=== PATIENT | male | born 1995 | race Caucasian/White ===

== ENCOUNTER 2017-02-10 20:50 | Emergency (ER) | payer BC ==
[2017-02-10 21:11] VITALS: O2SAT 98
[2017-02-10] MEDS ORDERED: MOTRIN 600 MG PO ONE (21:17)
[2017-02-10] MEDS ORDERED: MOTRIN 600 MG ONE (21:20)
--- NOTE | 2017-02-10 21:21 | ERPHSYRPT ---
- History of Present Illness Time Seen by Provider: 02/10/17 21:12 Source: patient Exam Limitations: no limitations Patient Subjective Stated Complaint: PT STATES HE WAS AT WORK THIS EVENING WHEN HIS RIGHT SHOULDER/CLAVICLE AREA STARTED TO HURT. PT DENIES ANY INJURY AT THE WORKPLACE. PT STATES THAT WHEN HE INHALES HE HAS WORSE PAIN. PT ALSO REPORTS TENDERNESS WHEN HE MOVES HIS RIGHT ARM. Triage Nursing Assessment: PT IS AOX3, AMBULATORY TO COT WITH NO DIFFICULTIES, RESPS ARE EASY AND NON LABORED, SKIN IS PWD. PULSES ARE STRONG AND EQUAL. 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 He denies any injury he does state he has had a cough is not short of breath. Past medical history migraines, high blood pressure, bronchitis. Past surgical history includes orthopedic surgery with the surgery on his right first digit, Social history patient denies tobacco alcohol or illicit drug use, Timing/Duration: today Severity: moderate Modifying Factors: Improves With: nothing Associated Symptoms: cough, chest pain (pain right anterior upper chest with deep breathing and movement), No nausea, No vomiting, No abdominal pain, No shortness of breath, No heartburn, No diaphoresis, No chills Allergies/Adverse Reactions: naproxen Allergy (Severe, Verified 02/10/17 21:17) Shortness of Breath Hx Tetanus, Diphtheria Vaccination/Date Given: Yes Hx Influenza Vaccination/Date Given: No Hx Pneumococcal Vaccination/Date Given: No Immunizations Up to Date: Yes - Review of Systems Constitutional: No Fever, No Chills Eyes: No Symptoms Ears, Nose, & Throat: No Symptoms Respiratory: Cough, Other (pain right clavicular area with deep breathing and movement) Cardiac: Chest Pain (Pain right clavicular area with deep breathing and movement ) Abdominal/Gastrointestinal: No Abdominal Pain, No Nausea, No Vomiting, No Diarrhea Genitourinary Symptoms: No Dysuria Musculoskeletal: No Back Pain, No Neck Pain Skin: No Rash Neurological: No Dizziness, No Focal Weakness, No Sensory Changes Psychological: No Symptoms Endocrine: No Symptoms All Other Systems: Reviewed and Negative - Past Medical History Pertinent Past Medical History: No Neurological History: Migraines Cardiac History: No Pertinent History, Hypertension Respiratory History: Bronchitis Endocrine Medical History: No Pertinent History Musculoskeletal History: No Pertinent History GI Medical History: No Pertinent History History: No Pertinent History Psycho-Social History: No Pertinent History Male Reproductive Disorders: No Pertinent History - Past Surgical History Past Surgical History: Yes Neuro Surgical History: No Pertinent History Cardiac: No Pertinent History Respiratory: No Pertinent History Gastrointestinal: No Pertinent History Genitourinary: No Pertinent History Musculoskeletal: Orthopedic Surgery Other Surgical History: REPAIR TO LEFT MIDDLE DIGIT - Social History Smoking Status: Never smoker Exposure to second hand smoke: No Drug Use: none Patient Lives Alone: No - Nursing Vital Signs Nursing Vital Signs: Initial Vital Signs Temperature 98.1 F Temperature Source Oral Pulse Rate 84 Respiratory Rate 18 Blood Pressure [Left Arm] 156/98 Pain Intensity 4 - Physical Exam General Appearance: no apparent distress, alert Eye Exam: PERRL/EOMI, eyes nml inspection Ears, Nose, Throat Exam: normal ENT inspection, TMs normal, pharynx normal, moist mucous membranes Neck Exam: normal inspection, non-tender, supple, full range of motion Respiratory Exam: normal breath sounds, chest tenderness (slight tenderness right clavicular area with palpation, movement of right arm and deep breathing) , lungs clear, No respiratory distress, No diminished breath sounds Cardiovascular Exam: regular rate/rhythm, normal heart sounds, normal peripheral pulses Gastrointestinal/Abdomen Exam: soft, normal bowel sounds, No tenderness, No mass Back Exam: normal inspection Extremity Exam: normal inspection, normal range of motion, pelvis stable Neurologic Exam: alert, oriented x 3, cooperative, normal mood/affect, nml cerebellar function, nml station & gait, sensation nml, No motor deficits Skin Exam: normal color, warm, dry, No rash SpO2 Interpretation: normal (98%) SpO2: 98 Oxygen Delivery: Room Air - Course Nursing assessment & vital signs reviewed: Yes EKG Interpreted by Me: RATE (78 bpm), Sinus Rhythm, Other (EKG sinus rhythm, 78 bpm, axisSI/QIII pattern, isolated Q wave in lead 3, no acute ST or T wave changes noted) Ordered Tests: Active Orders 24 hr Category Date Time Status EKG-ER Only STAT Care 02/10/17 21:25 Active CHEST 2 VIEWS (PA AND LAT) Stat Exams 02/10/17 21:16 Taken Medication Summary Discontinued Medications Generic Name Dose Route Start Last Admin Trade Name Freq PRN Reason Stop Dose Admin Ibuprofen 600 mg 02/10/17 21:17 02/10/17 21:22 Motrin 600 Mg PO 02/10/17 21:18 600 mg STAT ONE Administration Ibuprofen Confirm 02/10/17 21:20 Motrin 600 Mg Administered 02/10/17 21:21 Dose 600 mg .ROUTE .[facility]-MED ONE - Progress Progress: improved Progress Note: 02/10/17 22:20 X-ray of the patient's chest unremarkable no pneumothorax no fractures no pneumonias. EKG normal sinus rhythm Q-wave in lead 3 otherwise unremarkable. Will discharge patient limited use of the right arm for 48 hours. Patient to follow-up with his family doctor. - Departure Time of Disposition: 22:21 Departure Disposition: Home Clinical Impression: Musculoskeletal chest pain Condition: Fair Critical Care Time: No Referrals: JANELL CASTILLO [Primary Care Provider] - Additional Instructions: Return home. Cold packs to area 24-48 hours. Tylenol every 4 hours or Motrin every 6 hours as needed for pain. Limited use of the right arm for 48 hours. Follow-up with your family doctor if symptoms worse no better in 48 hours or persist longer than 72 hours. Return for acute distress or for severe symptoms.
[2017-02-10 22:56] VITALS: BP 156/98; PULSE 84
--- NOTE | 2017-02-11 23:48 | XRAY ---
Exam: Two-view chest from 02/10/2017. Comparison: Two-view chest from 08/29/2015. Indication: Right upper chest pain with movement and deep inspiration. Findings: Upright PA and lateral chest films were obtained for evaluation. The heart size and contour are normal. The patient is rotated slightly toward the left on the PA film. The eduardo and mediastinal structures appear unremarkable. The lungs are adequately inflated. No air space infiltrates, vascular congestion, pneumothorax, or pleural fluid is seen. The visualized bones appear unremarkable. Impression: 1. No acute cardiopulmonary disease is seen. This is unchanged from 08/29/2015.
== END 2017-02-10 22:30 | disposition home or self-care (01) ==
LOC: ED 20:50
DX: R07.89 Other chest pain (principal)
CPT/HCPCS: 71020; 93005; 99282; A9270-GY

== ENCOUNTER 2018-12-15 00:31 | Observation (INO) | payer BC ==
[2018-12-15] MEDS ORDERED: Sodium Chloride 0.9% 1000 ML 1,000 ML IV STA (01:38)
[2018-12-15] MEDS ORDERED: Sodium Chloride 0.9% 1000 ML 1,000 ML ONE (02:08)
[2018-12-15 02:09] LABS: BASOPHIL % 0.2 % (0.0-0.4); Basophil (Absolute #) 0.04 (0-0.4); Eosinophil % 0.3 % (0.00-5.0); Eosinophil (Absolute #) 0.08 (0-0.5); Granulocytes % 81.3 % (36.0-66.0); Hematocrit 44.5 % (42-50); Hemoglobin 14.8 gm/dl (12.5-18.0); Lymphocyte (Absolute #) 3.19 (1.0-4.6); Lymphocytes % 13.9 % (24.0-44.0); Mean Cell Volume 94.3 fl (78-100); Mean Corpuscular Hemoglobin 31.4 pg (26-32); Mean Corpuscular Hgb Concent. 33.3 g/dl (32-36); Mean Platelet Volume 10.5 fl (6-9.5); Monocyte (Absolute #) 0.99 (0.0-1.3); Monocytes % 4.3 % (0.0-12.0); Platelet Count 376 K/mm3 (150-450); Red Blood Count 4.72 M/mm3 (4.1-5.6); Red Cell Distribution Width 13.5 % (11.5-14.0)
[2018-12-15 02:21] LABS: ALBUMIN 4.5 g/dL (3.5-5.0); ALKALINE PHOSPHATASE 102 U/L (38-126); ANION GAP 14.9 MEQ/L (5-15); BLOOD UREA NITROGEN 11 mg/dL (9-20); CHLORIDE 102 mmol/L (98-107); Calcium 9.6 mg/dL (8.4-10.2); Carbon Dioxide 26 mmol/L (22-30); Creatinine 1 1.01 mg/dL (0.66-1.25); Glucose 143 mg/dL (74-106); Potassium 4.1 mmol/L (3.5-5.1); SGOT/AST 37 U/L (17-59); SGPT/ALT 77 U/L (0-50); SODIUM 139 mmol/L (137-145); Total Protein 7.9 g/dL (6.3-8.2)
--- NOTE | 2018-12-15 02:44 | ERPHSYRPT ---
- History of Present Illness Historian: patient Exam Limitations: no limitations Patient Subjective Stated Complaint: pt states he fell out of a truck and landed on a rock. c/o pain in his rt side with pain on his lt side only when he lays on the rt side. Triage Nursing Assessment: pt alert and oriented, answers questions approp. pt ambulatory with low gait noted. respirations nonlabored with lungs cta. pt splinting rt side with arm. no bruising, abrasion noted. pt reports tenderness to light palpation. Physician History: Pt is a 23 y/o male that presented to the ER, after falling off a truck. The pt states, he was trying to get off the truck, his knee buckled under him, and he fell on the R side of the abdomen. Pt states, the pain is severe and is tender on the RUQ and RLQ and the R lower back. Pt denies F/C. He does have sweats. No N/V. No SOB or cough. No problem with urination, or hematuria. Timing/Duration: today Activities at Onset: activity Quality: sharpness, stabbing, throbbing Abdominal Pain Onset Location: RUQ, RLQ Pain Radiation: flank, back (on R) Severity of Pain-Max: moderate Severity of Pain-Current: moderate Modifying Factors: Improves With: analgesics Associated Symptoms: diaphoresis Previous symptoms: no prior history Allergies/Adverse Reactions: No Known Drug Allergies Allergy (Verified 12/15/18 00:54) Home Medications: Diclofenac Sodium 75 mg PO BID 12/15/18 [History] Hx Tetanus, Diphtheria Vaccination/Date Given: Yes Hx Influenza Vaccination/Date Given: Yes Hx Pneumococcal Vaccination/Date Given: No Immunizations Up to Date: Yes - Review of Systems Constitutional: Other (diaphoresis) Eyes: No Symptoms Ears, Nose, & Throat: No Symptoms Respiratory: No Cough, No Dyspnea Cardiac: No Chest Pain, No Edema, No Syncope Abdominal/Gastrointestinal: Abdominal Pain Genitourinary Symptoms: No Dysuria Musculoskeletal: No Back Pain, No Neck Pain Neurological: No Dizziness, No Focal Weakness, No Sensory Changes - Past Medical History Pertinent Past Medical History: Yes Neurological History: Migraines Cardiac History: No Pertinent History, Hypertension Respiratory History: Bronchitis Endocrine Medical History: No Pertinent History Musculoskeletal History: No Pertinent History GI Medical History: No Pertinent History History: No Pertinent History Psycho-Social History: No Pertinent History Male Reproductive Disorders: No Pertinent History Other Medical History: bulging discs and bad knee - Past Surgical History Past Surgical History: Yes Neuro Surgical History: No Pertinent History Cardiac: No Pertinent History Respiratory: No Pertinent History Gastrointestinal: No Pertinent History Genitourinary: No Pertinent History Musculoskeletal: Orthopedic Surgery Other Surgical History: REPAIR TO LEFT MIDDLE DIGIT - Social History Smoking Status: Never smoker Exposure to second hand smoke: No Drug Use: none Patient Lives Alone: No - Nursing Vital Signs Nursing Vital Signs: Initial Vital Signs Temperature 98.2 F 12/15/18 00:39 Pulse Rate 82 12/15/18 00:39 Respiratory Rate 18 12/15/18 00:39 Blood Pressure 159/87 12/15/18 00:39 O2 Sat by Pulse Oximetry 96 12/15/18 00:39 Pain Scale Pain Intensity 10 - Physical Exam General Appearance: moderate distress Eye Exam: PERRL/EOMI, eyes nml inspection Ears, Nose, Throat Exam: normal ENT inspection, pharynx normal, moist mucous membranes Neck Exam: normal inspection, non-tender, supple, full range of motion Respiratory Exam: normal breath sounds, lungs clear, No respiratory distress Cardiovascular Exam: regular rate/rhythm, normal heart sounds Gastrointestinal/Abdomen Exam: soft, tenderness (RUQ and RLQ. Radiating to R back), guarding Back Exam: normal inspection, normal range of motion, CVA tenderness, No vertebral tenderness Extremity Exam: normal inspection, normal range of motion, pelvis stable Neurologic Exam: alert, oriented x 3, cooperative, normal mood/affect, nml cerebellar function, sensation nml, No motor deficits SpO2: 96 - Course Nursing assessment & vital signs reviewed: Yes - CT Exams Abdomen/Pelvis CT Interpretation: Discussed w/radiologist (Acute appedicitis) Ordered Tests: Active Orders 24 hr Category Date Time Status ABDOMEN AND PELVIS W/0 CONTRAS [CT] Stat Exams 12/15/18 00:54 Taken CBC W DIFF Stat Lab 12/15/18 02:09 Completed CMP Stat Lab 12/15/18 02:09 Completed Medication Summary Discontinued Medications Generic Name Dose Route Start Last Admin Trade Name Freq PRN Reason Stop Dose Admin Sodium Chloride 1,000 mls @ 999 mls/hr 12/15/18 01:38 12/15/18 02:10 Sodium Chloride 0.9% 1000 Ml IV 12/15/18 02:38 999 mls/hr .Q1H1M STA Administration Sodium Chloride Confirm 12/15/18 02:08 Sodium Chloride 0.9% 1000 Ml Administered 12/15/18 02:09 Dose 1,000 mls [facility] Lab/Rad Data: Laboratory Result Diagrams 12/15/18 02:09 12/15/18 02:09 Laboratory Results 12/15/18 12/15/18 Range/Units 02:09 02:09 WBC 23.0 H (4.0-10.5) K/mm3 RBC 4.72 (4.1-5.6) M/mm3 Hgb 14.8 (12.5-18.0) gm/dl Hct 44.5 (42-50) % MCV 94.3 (78-100) fl MCH 31.4 (26-32) pg MCHC 33.3 (32-36) g/dl RDW 13.5 (11.5-14.0) % Plt Count 376 (150-450) K/mm3 MPV 10.5 H (6-9.5) fl Gran % 81.3 H (36.0-66.0) % Eos # (Auto) 0.08 (0-0.5) Absolute Lymphs (auto) 3.19 (1.0-4.6) Absolute Monos (auto) 0.99 (0.0-1.3) Lymphocytes % 13.9 L (24.0-44.0) % Monocytes % 4.3 (0.0-12.0) % Eosinophils % 0.3 (0.00-5.0) % Basophils % 0.2 (0.0-0.4) % Absolute Granulocytes 18.70 H (1.4-6.9) Basophils # 0.04 (0-0.4) Sodium 139 (137-145) mmol/L Potassium 4.1 (3.5-5.1) mmol/L Chloride 102 (98-107) mmol/L Carbon Dioxide 26 (22-30) mmol/L Anion Gap 14.9 (5-15) MEQ/L BUN 11 (9-20) mg/dL Creatinine 1.01 (0.66-1.25) mg/dL Estimated GFR > 60.0 ML/MIN Glucose 143 H (74-106) mg/dL Calcium 9.6 (8.4-10.2) mg/dL Total Bilirubin 0.50 (0.2-1.3) mg/dL AST 37 (17-59) U/L ALT 77 H (0-50) U/L Alkaline Phosphatase 102 (38-126) U/L Serum Total Protein 7.9 (6.3-8.2) g/dL Albumin 4.5 (3.5-5.0) g/dL - Progress Progress: unchanged Progress Note: 12/15/18 02:44 Pt was evaluated and a CT of the abd/pelvis showed acute appendicitis. Elevated WBCs. Dr Joyner was contacted, and pt will be admitted to the hospital, under him, and kept NPO. Surgery for early this AM. IVF were initiated with 1 lit NSS bolus. Discussed with .: Yasmeen Will see patient in: hospital (full admit) - Departure Departure Disposition: In-patient Admission Clinical Impression: Acute appendicitis Condition: Stable Critical Care Time: No Referrals: DOCTOR,NO FAMILY [Primary Care Provider] - Additional Instructions: Pt to be admitted under Dr Arana for acute appendicitis.
[2018-12-15] MEDS ORDERED: Zofran 4 MG/2 ML VIAL IV PRN (02:47)
[2018-12-15] MEDS ORDERED: MORPHINE SULFATE 2 MG INJ IV PRN (02:47)
[2018-12-15] MEDS ORDERED: Sodium Chloride 0.9% 1000 ML 1,000 ML IV SCH (03:00)
[2018-12-15] MEDS ORDERED: Sensorcaine 0.25% 10 ML ONE (05:46)
[2018-12-15] MEDS ORDERED: Lactated Ringers 1,000 ML IV ONE (05:46)
[2018-12-15] MEDS ORDERED: WATER IV ONE (05:55)
[2018-12-15] MEDS ORDERED: DEXTROSE IV ONE (05:55)
[2018-12-15] MEDS ORDERED: MEFOXIN IV ONE (05:55)
[2018-12-15] MEDS ORDERED: DEMEROL 50 MG ONE (06:49)
[2018-12-15] MEDS ORDERED: TORAdol 30 mg Injection ONE (07:03)
[2018-12-15] MEDS ORDERED: Zofran 4 MG/2 ML VIAL ONE (07:03)
[2018-12-15] MEDS ORDERED: SUBLIMAZE 100 MCG/2 ML ONE (07:03)
--- NOTE | 2018-12-15 07:55 | HP ---
HISTORY OF PRESENT ILLNESS: The patient is a 23 year-old gentleman apparently fell out of a truck and came in. He had a CT scan that actually showed he had acute appendicitis. He has pain localized in the right lower quadrant. His temperature was 98.2F here, blood pressure 139/82, pulse 71. PAST MEDICAL HISTORY: He is a little bit overweight otherwise he denies any chronic illnesses. He does have some bulging discs and a bad knee. PAST SURGICAL HISTORY: He had surgery on finger of his left hand. He denies any prior abdominal surgery. MEDICATIONS: Currently he is on include diclofenac for his bad knee and bulging disc. ALLERGIES: NKDA. HE MAY HAVE BEEN ALLERGIC TO SOME MEDICATION A CHILD. HE DOES NOT KNOW THE NAME OF THE MEDICATION. FAMILY HISTORY: Cancer and diabetes. SOCIAL HISTORY: No smoking or alcohol abuse. REVIEW OF SYSTEMS: Twelve systems reviewed per admission assessment. No chest pain or palpitations other systems negative or noncontributory as above and per preadmission questionnaire. PHYSICAL EXAMINATION: GENERAL: No acute distress. HEENT: Sclerae nonicteric. NECK: No JVD. CHEST: Equal excursion, nonlabored breathing. CVS: Regular rate and rhythm. ABDOMEN: Soft. Localized tenderness and a little bit of guarding right lower quadrant. No peritoneal signs. EXTREMITIES: No significant edema. NEURO: Alert, moving extremities grossly symmetrically. No gross motor deficits noted. LAB DATA AND TESTS: His CT scan showed thickened appendix, periappendiceal fat stranding consistent with acute appendicitis. His white count was 22 on admission. Liver function tests were okay. IMPRESSION: Acute right lower quadrant pain. He has CT, history and physical exam findings suspicious for acute appendicitis. I feel he would benefit from diagnostic laparoscopy, laparoscopic appendectomy possible open when OR time available. Risks and benefits explained in detail including but not limited to bleeding or infection, risk of trocar injury or hernia, small risk of bowel, bladder or blood vessel injury, subsequent intra-abdominal abscess or fistula formation possibly requiring percutaneous or open drainage even at a later date, general risk of anesthesia, deep venous thrombosis, pulmonary embolism, pneumonia, risk of ileus or obstruction, possibility of finding a normal appendix likely will remove incidentally and look for other etiology that might need taken care of surgically. He also understands the possibility of an open procedure, general risk of anesthesia but not limited to. He understands and agrees to the planned procedure, will proceed with diagnostic laparoscopy, laparoscopic appendectomy when OR time available.
[2018-12-15] MEDS ORDERED: BRIDION 200MG/2ML IV ONE (08:01)
[2018-12-15] MEDS ORDERED: Zemuron 100 MG/10 ML IV ONE (08:01)
[2018-12-15] MEDS ORDERED: DIPRIVAN 200 MG/20 ML IV ONE (08:01)
[2018-12-15] MEDS ORDERED: Quelicin Fliptop 200 MG/10 ML IV ONE (08:01)
--- NOTE | 2018-12-15 08:14 | OP ---
SURGERY DATE/TIME: 12/15/2018 0555 PREOPERATIVE DIAGNOSIS: Acute appendicitis. POSTOPERATIVE DIAGNOSIS: Acute appendicitis. PROCEDURE: Laparoscopic appendectomy. SURGEON: Dr. Juan Jose Joyner. ANESTHESIA: General. ESTIMATED BLOOD LOSS: Minimal. INDICATIONS: As noted above. Risks and benefits explained in detail but not limited to, consent obtained. DESCRIPTION OF PROCEDURE AND FINDINGS: The patient was taken to the operating room. General anesthesia was induced. Abdomen prepped and draped in usual sterile fashion. After official time out and no disagreement with planned procedure, a transverse incision made supraumbilical area. Fascia grasped and pulled upwards. Veress needle inserted and tested with saline. Pneumoperitoneum accomplished insufflating opening pressure of 0 to 15. A 5 mm bladeless port and camera were inserted without difficulty followed by a lower midline 5 mm port and a 5 mm right mid abdomen port. Later an extra 5 mm port was placed in the right lower quadrant. The inflamed lateral peritoneal attachments were released with the aid of brief bursts of cautery and the hook. He had a large amount of adipose tissue. EndoGIA stapler fired across the mesoappendix along the appendiceal border down to an area where the appendiceal base could be isolated and it was then stapled at the cecum. The residual mesoappendix was taken with the stapler. There was a small pulsatile ooze at the staple line that was controlled with copious amount of irrigation irrigating until clear. Given the extensive inflammation, SHANI drain is placed in the right lower quadrant secured with PDS suture and placed to bulb suction. The appendix is then placed in Pleatman sac and pulled free and passed off. The fascial defect 12 mm site closed with puncture closure device with #1 Vicryl. Pneumoperitoneum decompressed. The wound is irrigated out. Skin incision closed with kamron. Sterile dressing applied. The patient tolerated the procedure well. 0.25% Marcaine local had been injected along the skin incision fascial defects. There were no immediate complications. Findings discussed with the family out in the waiting area.
[2018-12-15] MEDS ORDERED: NORCO 5/325 MG PO PRN (08:58)
[2018-12-15] MEDS ORDERED: MORPHINE SULFATE 4 MG INJ IV PRN (08:59)
[2018-12-15] MEDS ORDERED: MEFOXIN 1 Gm/ D5W 50 Ml** 1 G/50 ML ML IV SCH (09:00)
--- NOTE | 2018-12-15 09:16 | XRAY ---
Indication: Right upper quadrant pain following fall. Multiple contiguous axial images obtained through the abdomen and pelvis without contrast as ordered. Comparison: None. Lung bases essentially clear with incidental right base calcified granuloma. Heart is not enlarged. Stomach is distended with food/fluid. Noncontrasted stomach and bowel loops appear nonobstructed. Abnormal appendix appearing prominent up to 11 mm in diameter with periappendiceal stranding favoring acute appendicitis. No free fluid/air. Remaining liver, gallbladder, pancreas, spleen, adrenal glands, kidneys, ureters, bladder, and aorta appear unremarkable for noncontrast exam. Osseous structures intact with scattered pelvic bone and bilateral proximal femur sclerotic lesions favoring osteopoikilosis. No ventral/inguinal hernias. Impression: 1. Abnormal appendix as detailed favoring acute appendicitis. No complications. 2. Incidental osteopoikilosis. 3. Remaining CT abdomen/pelvis without contrast exam is negative. Comment: Preliminary interpretation was made by [facility]. No critical discrepancy. CT DI 23.68
[2018-12-15] MEDS: D5W/0.45NS W/ 20mEq KCl 1000 ML 1,000 ML IV SCH ×2 (09:33→20:37)
[2018-12-15] MEDS: FLAGYL 500 MG IVPB 500 MG/100 ML BAG IV SCH ×2 (10:56→17:34)
[2018-12-15] MEDS: MEFOXIN 1 Gm/ D5W 50 Ml** 1 G/50 ML ML IV SCH ×3 (12:07→23:37)
[2018-12-15] MEDS ORDERED: SUBLIMAZE 250 MCG/5 ML IJ ONE (15:08)
[2018-12-15] MEDS ORDERED: Versed 2 MG/2 ML Injection IV ONE (15:08)
[2018-12-15] MEDS ORDERED: MORPHINE SULFATE 10 MG/ML IV ONE (15:08)
[2018-12-15] MEDS: TYLENOL 325 MG PO PRN ×2 (16:12→20:54)
[2018-12-15] MEDS: MOTRIN 600 MG PO PRN (18:23)
[2018-12-16] MEDS: FLAGYL 500 MG IVPB 500 MG/100 ML BAG IV SCH ×3 (01:24→18:39)
[2018-12-16] MEDS: TYLENOL 325 MG PO PRN ×2 (04:03→09:17)
[2018-12-16 05:01] LABS: Hematocrit 39.9 % (42-50); Hemoglobin 13.3 gm/dl (12.5-18.0); Mean Cell Volume 95.9 fl (78-100); Mean Corpuscular Hgb Concent. 33.3 g/dl (32-36); Mean Platelet Volume 10.8 fl (6-9.5); Platelet Count 298 K/mm3 (150-450); Red Blood Count 4.16 M/mm3 (4.1-5.6); Red Cell Distribution Width 13.6 % (11.5-14.0); White Blood Count 11.1 K/mm3 (4.0-10.5)
[2018-12-16] MEDS: MEFOXIN 1 Gm/ D5W 50 Ml** 1 G/50 ML ML IV SCH ×3 (05:54→18:03)
[2018-12-16] MEDS: MOTRIN 600 MG PO PRN (20:10)
[2018-12-17] MEDS: MEFOXIN 1 Gm/ D5W 50 Ml** 1 G/50 ML ML IV SCH ×2 (00:46→05:55)
[2018-12-17] MEDS: FLAGYL 500 MG IVPB 500 MG/100 ML BAG IV SCH (01:05)
[2018-12-17 06:54] LABS: Hematocrit 44.2 % (42-50); Hemoglobin 14.3 gm/dl (12.5-18.0); Mean Cell Volume 96.3 fl (78-100); Mean Corpuscular Hemoglobin 31.2 pg (26-32); Mean Corpuscular Hgb Concent. 32.4 g/dl (32-36); Mean Platelet Volume 10.9 fl (6-9.5); Platelet Count 328 K/mm3 (150-450); Red Blood Count 4.59 M/mm3 (4.1-5.6); Red Cell Distribution Width 13.6 % (11.5-14.0); White Blood Count 10.3 K/mm3 (4.0-10.5)
[2018-12-17 07:23] VITALS: BP 115/58; PULSE 69
[2018-12-17 07:48] VITALS: O2SAT 96
== END 2018-12-17 08:02 | disposition home or self-care (01) ==
LOC: ED 00:31 → INTOOBSV 03:12 → MED SURG 03:12 → UNDOADMIN 03:12 → UNDODISIN 12-17 08:02
PROVIDERS: ADMIT Surgery; ATTEND Surgery
DX: K35.80 Unspecified acute appendicitis (principal)
CPT/HCPCS: 36415; 44970; 74176; 80053; 85025; 85027; 94760; 94762; 96360; 99285; G0378; 99140; J0330; J0694; J1885; J2175; J2250; J2270; J2405; J2704; J3010; A9270-GY

== ENCOUNTER 2020-03-18 18:32 | Emergency (ER) | payer BC ==
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
[2020-03-18 21:06] VITALS: PULSE 104
[2020-03-18 21:07] VITALS: BP 130/82; O2SAT 98
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
== END 2020-03-18 21:18 | disposition home or self-care (01) ==
LOC: ED 18:32
DX: R51 Headache (principal); M54.2 Cervicalgia; R42 Dizziness and giddiness; R07.9 Chest pain, unspecified; M79.632 Pain in left forearm; M25.532 Pain in left wrist; M25.561 Pain in right knee; V49.40XA Driver injured in collision with unspecified motor vehicles in traffic accident, initial encounter; Y99.9 Unspecified external cause status
CPT/HCPCS: 70450; 71045; 72125; 73090; 73110; 73560; 93005; 99285; L3908